=== PATIENT | female | born 1955 | race Caucasian/White ===

== ENCOUNTER → 2016-08-21 | Outpatient (CLI) | payer BC ==
--- NOTE | 2016-08-22 10:07 | MM ---
Reason for exam: screening (asymptomatic). Last mammogram was performed 1 year and 4 months ago. History: Patient is postmenopausal. Took estrogen for 2 years beginning at age 50. Physical Findings: A clinical breast exam by your physician is recommended on an annual basis and results should be correlated with mammographic findings. MG Screening Mammo w CAD Bilateral CC and MLO view(s) were taken. Prior study comparison: April 27, 2015, bilateral MG screening mammo w CAD. March 15, 2014, bilateral MG screening mammo w CAD. There are scattered fibroglandular densities. Finding: There are stable typically benign round calcifications. There is no discrete abnormality. No significant changes in finding since April 27, 2015 and March 15, 2014. ASSESSMENT: Benign, BI-RAD 2 RECOMMENDATION: Routine screening mammogram of both breasts in 1 year.
== END | disposition home or self-care (01) ==
LOC: RADMAMWWP 11:03
PROVIDERS: ATTEND Family Medicine
DX: Z12.31 Encounter for screening mammogram for malignant neoplasm of breast (principal)

== ENCOUNTER → 2017-02-21 | Outpatient (CLI) | payer BC ==
--- NOTE | 2017-02-21 09:21 | XR ---
EXAMINATION TYPE: XR Hip Bilateral Complete DATE OF EXAM: 02/21/2017 CLINICAL HISTORY: Increasing right groin pain for 2 years with left groin pain for 2 to 3 months TECHNIQUE: AP and frogleg views of the bilateral hips are obtained. COMPARISON: CT abdomen pelvis dated 09/22/2015 FINDINGS: There is no acute fracture/dislocation evident in either hip. There is bilateral mild femo ral acetabular arthropathy with acetabular sclerosis, small lateral femoral head marginal osteophyte on the right, small foveal osteophyte on the right, and bilateral medial joint space narrowing. No pr otuberance is seen at the femoral head neck junction to suggest underlying cam deformity. Femoral hea ds remain a rounded configuration. The overlying soft tissue appears unremarkable. IMPRESSION: 1. There is no acute fracture or dislocation in either hip. 2. 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
== END | disposition home or self-care (01) ==
LOC: RADXRYALE 08:58
PROVIDERS: ATTEND Nurse Practitioner Family
DX: M12.851 Other specific arthropathies, not elsewhere classified, right hip (principal); M12.852 Other specific arthropathies, not elsewhere classified, left hip
CPT/HCPCS: 73521

== ENCOUNTER → 2017-09-29 | Outpatient (CLI) | payer BC ==
--- NOTE | 2017-10-01 10:27 | MM ---
Reason for exam: screening (asymptomatic). Last mammogram was performed 1 year and 1 month ago. History: Patient is postmenopausal. Took estrogen for 2 years beginning at age 50. Physical Findings: A clinical breast exam by your physician is recommended on an annual basis and results should be correlated with mammographic findings. MG 3D Screening Mammo W/Cad Bilateral CC and MLO view(s) were taken. Prior study comparison: August 21, 2016, bilateral MG screening mammo w CAD. April 27, 2015, bilateral MG screening mammo w CAD. There are scattered fibroglandular densities. Finding: There are typically benign, fine, regional calcifications in the upper outer quadrant, middle position of the right breast. There is a chronic nodularity bilaterally. Focal asymmetry right upper outer quadrant. No significant changes in finding since August 21, 2016 and April 27, 2015. ASSESSMENT: Benign, BI-RAD 2 RECOMMENDATION: Routine screening mammogram of both breasts in 1 year.
== END | disposition home or self-care (01) ==
LOC: RADMAMWWP 16:23
PROVIDERS: ATTEND Family Medicine
DX: Z12.31 Encounter for screening mammogram for malignant neoplasm of breast (principal)
CPT/HCPCS: 77063; 77067

== ENCOUNTER → 2018-10-14 | Outpatient (CLI) | payer BC ==
--- NOTE | 2018-10-16 14:34 | MM ---
Reason for exam: screening (asymptomatic). Last mammogram was performed 1 year ago. History: Patient is postmenopausal. Took estrogen for 2 years beginning at age 50. Physical Findings: A clinical breast exam by your physician is recommended on an annual basis and results should be correlated with mammographic findings. MG 3D Screening Mammo W/Cad Bilateral CC and MLO view(s) were taken. Prior study comparison: September 29, 2017, bilateral MG 3d screening mammo w/cad. August 21, 2016, bilateral MG screening mammo w CAD. The breast tissue is heterogeneously dense. This may lower the sensitivity of mammography. Finding: There are typically benign regional calcifications in the upper outer quadrant, middle position of the right breast. No significant changes in finding since September 29, 2017 and August 21, 2016. ASSESSMENT: Benign, BI-RAD 2 RECOMMENDATION: Routine screening mammogram of both breasts in 1 year.
== END | disposition home or self-care (01) ==
LOC: RADMAMWWP 13:45
PROVIDERS: ATTEND Family Medicine
DX: Z12.31 Encounter for screening mammogram for malignant neoplasm of breast (principal)
CPT/HCPCS: 77063; 77067

== ENCOUNTER → 2019-02-10 | Outpatient (CLI) | payer BC ==
--- NOTE | 2019-02-10 13:44 | MR ---
EXAMINATION TYPE: MR shoulder RT wo con DATE OF EXAM: 02/10/2019 1:26 PM COMPARISON: NONE HISTORY: Bursitis of right shoulder TECHNIQUE: Multiplanar multispin echo imaging of the right shoulder was performed. FINDINGS: Rotator cuff : Marked thickening and heterogeneity of the supraspinatus tendon at the critical zone e xtending distally to the humeral insertion. Complete partial tear of the supraspinatus tendon noted w ithout retraction. Tear extends into the infraspinatus tendon. Subscapularis is intact. Bursa: No bursal effusion or thickening is seen. Musculature: There is no muscular tear, contusion, or atrophy. Acromioclavicular joint : There are moderate degenerative changes of the acromioclavicular joint. Th ere is no anterior or lateral acromial downsloping. Osseous structures : There are no fractures or regions of abnormal bone marrow signal intensity. Long biceps tendon : The biceps tendon is normally situated within the bicipital groove. No complete or partial biceps tendon tear is present. Glenohumeral Joint fluid : There is no glenohumeral joint effusion. Cartilage and Bone : No focal hyaline cartilage defects are noted. No Hill-Sachs, reverse Hill-Sachs, or bony Bankart lesions are seen. Labrum : There are no SLAP or soft tissue Bankart lesions. No paralabral cysts are seen. OTHER FINDINGS : Subchondral cyst within the humeral head greater tuberosity. IMPRESSION: 1. Marked thickening and heterogeneity of the supraspinatus tendon at the critical zone extending dis tally to the humeral insertion. Complete partial tear of the supraspinatus tendon noted without retra ction. Tear extends into the infraspinatus tendon.
== END ==
LOC: RADMRIMAIN 12:36
PROVIDERS: ATTEND Nurse Practitioner Family
DX: M75.111 Incomplete rotator cuff tear or rupture of right shoulder, not specified as traumatic (principal); R93.7 Abnormal findings on diagnostic imaging of other parts of musculoskeletal system

== ENCOUNTER → 2020-07-21 | Outpatient (CLI) | payer BC ==
--- NOTE | 2020-07-25 08:40 | MM ---
Reason for exam: screening (asymptomatic). Last mammogram was performed 1 year and 9 months ago. History: Patient is postmenopausal. Took estrogen for 2 years beginning at age 50. Physical Findings: A clinical breast exam by your physician is recommended on an annual basis and results should be correlated with mammographic findings. MG 3D Screening Mammo W/Cad Bilateral CC and MLO view(s) were taken. Prior study comparison: October 14, 2018, bilateral MG 3d screening mammo w/cad. September 29, 2017, bilateral MG 3d screening mammo w/cad. The breast tissue is heterogeneously dense. This may lower the sensitivity of mammography. There is chronic nodularity bilaterally. Global asymmetry with associated regional calcifications right upper outer quadrant is unchanged. No significant changes when compared with prior studies. ASSESSMENT: Benign, BI-RAD 2 RECOMMENDATION: Routine screening mammogram of both breasts in 1 year.
== END | disposition home or self-care (01) ==
LOC: RADMAMWWP 12:34
PROVIDERS: ATTEND Family Medicine
DX: Z12.31 Encounter for screening mammogram for malignant neoplasm of breast (principal)
CPT/HCPCS: 77063; 77067

== ENCOUNTER 2021-05-03 06:20 | Day surgery (SDC) | payer BC ==
[2021-05-01 15:17] VITALS: BMI 24.1
[2021-05-03] MEDS ORDERED: ONDANSETRON 4 MG/2 ML VIAL ONE (06:58)
[2021-05-03] MEDS ORDERED: LIDOCAINE 1% (10MG/ML) FOR IV START INTRADERMA ONE (07:10)
[2021-05-03] MEDS ORDERED: ONDANSETRON 4 MG/2 ML VIAL IVP ONE (07:10)
[2021-05-03 07:12] LABS: Glucose,Whole Blood 196 mg/dL (75-99)
[2021-05-03] MEDS ORDERED: LACTATED RINGERS 1,000 ML IV ONE (07:15)
[2021-05-03] MEDS ORDERED: PROPOFOL 10 MG/ML 20 ML VIAL IV ONE (07:18)
[2021-05-03] MEDS ORDERED: LIDOCAINE 1% INJ 10MG/ML (20 ML MDV) ONE (07:18)
[2021-05-03 07:21] VITALS: TEMP 97.8
--- NOTE | 2021-05-03 07:29 | P.PCN ---
Date of Procedure: 05/03/21 Procedure(s) Performed: BRIEF HISTORY: Patient is a 65-year-old, pleasant, white female scheduled for an upper endoscopy as a part of evaluation of metastatic adenocarcinoma of the liver with unknown primary. The studies to rule out upper GI malignancy. PROCEDURE PERFORMED: Esophagogastroduodenoscopy. PREOPERATIVE DIAGNOSIS: Recently diagnosed metastatic adenocarcinoma the liver rule out upper GI primary. IV sedation per anesthesia. PROCEDURE: After informed consent was obtained, the patient was brought into the endoscopy unit. IV sedation was administered by Anesthesia under continuous monitoring. Initially the Olympus GIF-140 video endoscope was inserted into the mouth. Esophagus intubated without any difficulty. It was gradually advanced into the stomach and duodenum and carefully examined. The bulb and the second part of the duodenum appeared normal. The scope at this time was withdrawn to the stomach, adequately insufflated with air, and upon careful examination, mucosa of the antrum, body, cardia and the fundus appeared normal. The scope was then withdrawn into the esophagus. The GE junction was located at 39 cm from the incisors. There were superficial erosions in the distal esophagus consistent with LA grade B reflux esophagitis. The rest of esophagus appeared normal and the patient tolerated the procedure well. IMPRESSION: 1. Mild distal reflux esophagitis. 2. No evidence of upper GI malignancy. RECOMMENDATIONS: The findings of this examination were discussed with the patient as well as a family. She was advised to follow with Dr. Shaikh as scheduled..
[2021-05-03 07:35] VITALS: RESP 16
[2021-05-03 07:57] VITALS: BP 135/80; PULSE 71
== END 2021-05-03 08:23 | disposition home or self-care (01) ==
LOC: ORWHC2ENDO 06:20
PROVIDERS: ATTEND Internal Medicine Gastroenterology
DX: K21.9 Gastro-esophageal reflux disease without esophagitis (principal); K21.00 Gastro-esophageal reflux disease with esophagitis, without bleeding; I10 Essential (primary) hypertension; J45.909 Unspecified asthma, uncomplicated; Z98.890 Other specified postprocedural states; F41.9 Anxiety disorder, unspecified; Z79.899 Other long term (current) drug therapy
CPT/HCPCS: 43235; J2405; J2001; J2704

== ENCOUNTER 2021-05-10 11:15 | Day surgery (SDC) | payer BC ==
[2021-05-07 09:00] VITALS: BMI 24.1
[~2021-05-10 11:15] MED LIST: DEXAMETHASONE SOD PHOSPHATE 4 MG/ML 1 ML VIAL IV ONE; HYDROmorphone 0.5 MG/0.5 ML SYRINGE IVP PRN; LACTATED RINGERS 1,000 ML IV SCH; ONDANSETRON 4 MG/2 ML VIAL IVP ONE; Pre Op ABX Message 1 EACH MISC MISCELLANE ONE
[2021-05-10 11:51] VITALS: TEMP 98.5
[2021-05-10 12:03] LABS: Glucose,Whole Blood 184 mg/dL (75-99)
[2021-05-10] MEDS ORDERED: fentaNYL (PF) 50 MCG/ML 2 ML AMP ONE (12:28)
[2021-05-10] MEDS ORDERED: PROPOFOL 10 MG/ML 20 ML VIAL IV ONE (12:28)
[2021-05-10] MEDS ORDERED: MIDAZOLAM 2 MG/2 ML VIAL ONE (12:28)
[2021-05-10] MEDS ORDERED: KETAMINE 10 MG/ML 20 ML VIAL ONE (12:28)
[2021-05-10] MEDS ORDERED: LIDOCAINE 1% INJ 10MG/ML (20 ML MDV) SQ ONE (12:40)
[2021-05-10] MEDS ORDERED: LIDOCAINE 1%-EPI 1:100,000 20 ML VIAL SQ ONE (12:40)
[2021-05-10] MEDS ORDERED: ceFAZolin 1,000 MG VIAL IVPB ONE (12:40)
--- NOTE | 2021-05-10 13:22 | P.OP ---
Date of Procedure: 05/10/21 Preoperative Diagnosis: adenocarcinoma of the liver Postoperative Diagnosis: same Procedure(s) Performed: Right subclavian mediport placement Anesthesia: MAC Surgeon: Bebeto Renee Estimated Blood Loss (ml): 10 Condition: stable Disposition: PACU Description of Procedure: Patient is brought to the operative suite remained in supine position underwent sedation per department of anesthesia timeout was performed correct patient correct procedure correct site was verified local anesthetic was used to an esthetize the skin subcutaneous tissues directly over the right anterior chest the cannulating needle was used to cannulate the subclavian vein dark nonpulsatile red blood was noted the wire was passed into the SVC under direct visualization with fluoroscopy. The cannulating needle was removed leaving the wire in place. A 15 blade scalpel was used to make an incision just inferior to this on the anterior chest carried down and a pocket was created hemostasis was noted the catheter was tunneled between the pocket and the wire and the dilator and sheath were placed directly over the wire in a coaxial motion while watching under fluoroscopy. The wire and the dilator were removed leaving the sheath in place in the catheter was placed through the sheath and confirmed to be at the SVC atrial junction on fluoroscopy. The sheath was split and removed leaving just the catheter. The catheter was cut to size, the Mediport was placed Mediport was sutured in place in the anterior chest fascia. This was done with 2-0 Prolene's. The port was flushed with ease and hep-locked. Final image was taken and confirmed port in proper place. The wound was then closed with 3-0 subdermal Vicryl followed by 4-0 running subcuticular Monocryl stitch. The stab incision was closed with a 4-0 Monocryl. Sterile dressing was applied patient tolerated the procedure well no apparent complications Plan - Discharge Summary Discharge Rx Participant: Yes New Discharge Prescriptions: No Action Montelukast [Singulair] 10 mg PO HS ALPRAZolam [Xanax] 0.25 mg PO BID PRN PRN Reason: Anxiety Albuterol Sulfate [Proventil Hfa] 1 - 2 puff INHALATION RT-BID PRN PRN Reason: wheezing Fluticasone/Salmeterol [Advair 250-50 Diskus] 1 puff INHALATION HS Scopolamine [Scopolamine 1 MG/72 HR patch] 1 patch TRANSDERM Q72H Hydrochlorothiazide [hydroCHLOROthiazide] 12.5 mg PO DAILY Metoclopramide HCl [Reglan] 5 mg PO QID Omeprazole [PriLOSEC] 20 mg PO AC-BID PRN PRN Reason: Heartburn amLODIPine [Norvasc] 10 mg PO DAILY Discharge Medication List ALPRAZolam [Xanax] 0.25 mg PO BID PRN 07/11/14 [History] Albuterol Sulfate [Proventil Hfa] 1 - 2 puff INHALATION RT-BID PRN 07/11/14 [History] Montelukast [Singulair] 10 mg PO HS 07/11/14 [History] Fluticasone/Salmeterol [Advair 250-50 Diskus] 1 puff INHALATION HS 09/22/15 [History] Hydrochlorothiazide [hydroCHLOROthiazide] 12.5 mg PO DAILY 05/01/21 [History] Metoclopramide HCl [Reglan] 5 mg PO QID 05/01/21 [History] Omeprazole [PriLOSEC] 20 mg PO AC-BID PRN 05/01/21 [History] Scopolamine [Scopolamine 1 MG/72 HR patch] 1 patch TRANSDERM Q72H 05/01/21 [History] amLODIPine [Norvasc] 10 mg PO DAILY 05/01/21 [History]
--- NOTE | 2021-05-10 13:24 | FL ---
EXAMINATION TYPE: FL guided central line placemt HISTORY: Fluoroscopy time Impression: 1. Fluoroscopy support provided to the referring physician.
--- NOTE | 2021-05-10 13:45 | XR ---
EXAMINATION TYPE: XR chest 1V portable DATE OF EXAM: 05/10/2021 COMPARISON: 09/21/2015 HISTORY: Mediport placement TECHNIQUE: Single frontal view of the chest is obtained. FINDINGS: There is no focal air space opacity, pleural effusion, or pneumothorax seen. The cardiac silhouette size is within normal limits. The osseous structures are intact. There is a right-sided Mediport catheter the tip overlying the SVC. No sizable pneumothorax. Arthropathy of the shoulders. A therosclerotic change aorta. Hyperinflation suggests COPD. No overt failure. IMPRESSION: 1. Mediport overlying the SVC with no sizable pneumothorax.
[2021-05-10 13:47] VITALS: BP 147/76; PULSE 65; RESP 16
== END 2021-05-10 14:22 | disposition home or self-care (01) ==
LOC: OR 11:15
PROVIDERS: ATTEND Student in an Organized Health Care Education/Training Program
DX: C22.7 Other specified carcinomas of liver (principal); E11.9 Type 2 diabetes mellitus without complications; J45.909 Unspecified asthma, uncomplicated; I10 Essential (primary) hypertension; E78.5 Hyperlipidemia, unspecified; Z98.890 Other specified postprocedural states; Z80.0 Family history of malignant neoplasm of digestive organs; Z79.899 Other long term (current) drug therapy; Z79.51 Long term (current) use of inhaled steroids
CPT/HCPCS: 77001; 71045; 36561; C1788; J2250; J1100; J2405; J0690; J2001; J3010; J1642; J2704

== ENCOUNTER → 2021-05-25 | Outpatient (CLI) | payer BC ==
--- NOTE | 2021-05-28 08:30 | PE ---
EXAMINATION TYPE: PET CT fusion skull to thigh DATE OF EXAM: 05/25/2021 COMPARISON: CT abdomen and pelvis December 19, 2017 HISTORY: Liver cancer recent biopsy April 2021. TECHNIQUE: Following the intravenous administration of 9.37 mCi of F-18 FDG, whole body images are p erformed from the skull base to the midthigh. Images are reviewed on the computer in the coronal, ax ial, and sagittal planes. Reconstructed rotating images are created on independent workstation and r eviewed on the computer. A localization and attenuation correction CT is performed in conjunction w ith the PET scan. Blood glucose level equals 157. SCAN: Initial Scan FINDINGS: SKULL BASE AND NECK: No areas of abnormal hypermetabolic uptake. CHEST, MEDIASTINUM, AND HILAR REGION: No areas of abnormal hypermetabolic uptake. ABDOMEN AND PELVIS: Vague hypermetabolic lesion anterior-inferior liver measures roughly 4.9 cm long axis axial image 139 series 3, max SUV is 4.91. There is second mildly hypermetabolic lesion in the p eriphery of the right hepatic lobe just below this suspected axial image 143 measuring 2.7 cm long ax is, max SUV is 4.35. A third 2.1 cm lesion just below the first lesion axial image 146 is suspected. Subtle hypermetabolic uptake axial image 148 corresponds to deep deep pancreatic body suspect roughly 1.5 cm lesion, max SUV is 3.83. No ductal dilatation or obstruction noted. Normal excretion is seen. Mild nonspecific bowel uptake is noted. OSSEOUS STRUCTURES: No areas of abnormal hypermetabolic uptake. OTHER CT: Mild calcified plaque right carotid bulb. There is right subclavian Mediport catheter termi nating in SVC. Coronary artery calcification is present. Slightly retroflexed uterus. Occasional scattered pelvic phlebolith. Mild to moderate disc space narr owing with vacuum disc phenomenon L5-S1 level. Facet arthropathy lower lumbar levels. IMPRESSION: Findings consistent with subtle primary pancreatic neoplasm and hepatic metastatic diseas e as detailed above.
== END | disposition home or self-care (01) ==
LOC: RADPETMAIN 12:24
PROVIDERS: ATTEND Internal Medicine Hematology & Oncology
DX: C78.7 Secondary malignant neoplasm of liver and intrahepatic bile duct (principal); C25.9 Malignant neoplasm of pancreas, unspecified
CPT/HCPCS: 78815; A9552

== ENCOUNTER → 2021-10-17 | Outpatient (CLI) | payer BC ==
[2021-10-17 14:28] LABS: African American GFR (CKD) >90 (>60 ml/min/1.73 sqM); Blood Urea Nitrogen 8 mg/dL (7-17); Non-African American GFR(CKD) >90 (>60 ml/min/1.73 sqM)
--- NOTE | 2021-10-19 13:18 | CT ---
EXAMINATION TYPE: CT chest, abdomen and pelvis w con DATE OF EXAM: 10/17/2021 COMPARISON: Or 622 HISTORY: malignant neoplasm of pancreas CT DLP: 503.5 mGycm Automated exposure control for dose reduction was used. CONTRAST: CT scan of the chest,, abdomen and pelvis is performed with Oral Contrast and with IV Contrast, patie nt injected with 70ml mL of Isovue 300. FINDINGS: CT chest: There is no acute cardiopulmonary disease. The lungs are clear. There is no pleural effusion or pneum othorax. There is no suspicious lung mass or nodule. There is no mediastinal, hilar or axillary adenopathy. Great vessels chest are normal. There is a Mediport catheter on the right with the tip in the SVC/RA junction. No focal intraosseous abnormalities are seen. CT abdomen and pelvis: There has been interval placement of a common bile duct stent. There is scattered air within the intr ahepatic biliary tree but the marked bile duct dilatation and gallbladder distention seen in the prio r study has resolved in the interval. The gallbladder is currently contracted. There is diffuse fatty replacement of the liver. There is an 18 mm enhancing metastatic lesion in the right upper liver which was seen previously and is stable. The pancreas is not well defined but there are multiple cystic lesions within it which appear to have increased in the interval. The spleen is unremarkable. Kidneys excrete contrast probably symmetrically and there is no solid renal mass or hydronephrosis. T he caliber of the abdominal aorta is normal. There is no retroperitoneal adenopathy or hemorrhage. The bowel loops are normal in caliber is no evidence of obstruction. There is no free intraperitoneal air or fluid. There is no pelvic mass or adenopathy. The osseous structures are intact without focal intraosseous abnormality. IMPRESSION: 1. Unremarkable chest CT. No evidence of metastatic disease within the thorax. 2. Interval placement of an biliary stent which has resulted in resolution of the previous marked albert iary ductal dilatation and gallbladder distention. 3. Increasing multiple cystic/necrotic masses within the pancreas. 4. No change in the metastatic liver lesion 5. Diffuse fatty infiltration liver. 6. No focal intraosseous abnormalities.
== END | disposition home or self-care (01) ==
LOC: RADCTMAIN 13:24
PROVIDERS: ATTEND Internal Medicine Hematology & Oncology
DX: C25.0 Malignant neoplasm of head of pancreas (principal); K76.0 Fatty (change of) liver, not elsewhere classified
CPT/HCPCS: 82565; 84520; 71260; 74177; J1642; Q9967

== ENCOUNTER → 2022-04-01 | Outpatient (CLI) | payer BC ==
[2022-04-01 14:19] LABS: African American GFR (CKD) >90 (>60 ml/min/1.73 sqM); Blood Urea Nitrogen 7 mg/dL (7-17); Non-African American GFR(CKD) >90 (>60 ml/min/1.73 sqM)
--- NOTE | 2022-04-01 16:05 | CT ---
EXAMINATION TYPE: CT ChestAbdPelvis w con CT DLP: 538.0 mGycm, Automated exposure control for dose reduction was used. DATE OF EXAM: 04/01/2022 3:37 PM COMPARISON: CT most recent chest abdomen pelvis 01/04/2022 CLINICAL INDICATION:Female, 66 years old with history of C25.0 MALIGNANT NEOPLASM OF HEAD OF PANCREAS 1, hx of pancreatic ca. obs for mets. Technique: Multiple axial images of the chest, abdomen, and pelvis were obtained. Two-dimensional cor onal and sagittal reconstructions were obtained. Contrast used:100 mL of Isovue 300 with IV Contrast, Oral contrast used: with Oral Contrast Findings: CHEST: LUNGS/ PLEURA:. No focal consolidation, pneumothorax or pleural effusion. No evidence for pulmonary n odule AIRWAY: Patent and unremarkable. HEART: Size within normal limits. MEDIASTINUM: No gross evidence of adenopathy. VASCULATURE: No aortic aneurysm. Right chest wall Brxtxf-y-[id number] with distal tip terminating in the s uperior vena cava. MUSCULOSKELETAL: No acute osseous abnormalities. SOFT TISSUES/LYMPH NODES: Left thyroid nodule LOWER NECK: No significant findings. ABDOMEN: ABDOMEN LIVER: Diffusely hypoattenuating parenchyma similar to prior. Hypervascular lesion measuring up to 2. 8 cm is again seen in the right hepatic lobe segment 8. Area in segment 4A and other lesions are less well delineated on this examination GALLBLADDER AND BILE DUCTS: Redemonstration of pneumobilia process significant change from prior. The redemonstration of biliary stent is in place with distal tip terminating in the duodenum and the pro ximal tip terminating in the common bile duct. Stent appears patent. PANCREAS: Persistent pancreatic duct dilation with cystic areas most pronounced in the tail. Prior ar ea within the pancreatic head/neck cystic is not definitively visualized on today's exam the area wit hin the pancreatic body measures similarly at 18 mm The pancreatic head mass is difficult to properly measure however is felt to measure up to 4.6 x 3.1 cm could includes fat stranding changes around the pancreatic head. SPLEEN: Unremarkable. ADRENAL GLANDS: Unremarkable. KIDNEYS AND URETERS: No evidence of hydronephrosis or renal calculus. The ureters are unremarkable. PELVIS BLADDER: Unremarkable REPRODUCTIVE: Unremarkable. ABDOMEN & PELVIS STOMACH AND BOWEL: No evidence of bowel obstruction. There is some wall thickening of the descending colon measuring up to 7 mm. PERITONEUM: No evidence of pneumoperitoneum. There is small amount of free fluid throughout the abdom en and pelvis. VASCULATURE: No evidence of aortic aneurysm. Moderate to severe atherosclerosis of the arterial vascu lature. MUSCULOSKELETAL: Sclerotic focus within L3 measuring 8 mm is stable from prior additional sclerotic f oci involving the pelvis left iliac bone is similar to prior as well.. No acute osseous abnormalities . Mild disc degeneration changes are present throughout the thoracolumbar spine. No suspicious lesion . Left hip bone island. LYMPH NODES: No gross evidence for lymphadenopathy. SOFT TISSUE/ABDOMINAL WALL: Unremarkable IMPRESSION: 1. Overall findings are not significantly changed with hepatic metastatic disease. Pancreatic head m ass with pancreatic cystic lesions nearby are suboptimally evaluated due to hazy fat stranding/inflam mation around the pancreas which may partially due to new free fluid seen within the abdomen versus i nfiltrative pancreatic cancer. 2. Stable L3 vertebral body and left iliac bone sclerotic foci. 3. Diffuse hepatic steatosis. 4. Biliary stent with pneumobilia 5. There remains no evidence of metastatic disease within the thorax. 6. Ascending colon circumferential wall thickening up to 7 mm correlate for colitis.
== END | disposition home or self-care (01) ==
LOC: RADCTMAIN 13:37
PROVIDERS: ATTEND Internal Medicine Hematology & Oncology
DX: C78.7 Secondary malignant neoplasm of liver and intrahepatic bile duct (principal); C25.0 Malignant neoplasm of head of pancreas; K76.0 Fatty (change of) liver, not elsewhere classified; K86.2 Cyst of pancreas
CPT/HCPCS: 82565; 84520; 71260; 74177; 36415; Q9967

== ENCOUNTER 2022-04-19 17:51 | Emergency (ER) | payer BC ==
[2022-04-19 18:06] VITALS: BP 156/85; PULSE 81; RESP 18; TEMP 98.4
--- NOTE | 2022-04-19 20:22 | CT ---
EXAMINATION TYPE: CT brain wo con CT DLP: 1190.4 mGycm, Automated exposure control for dose reduction was used. DATE OF EXAM: 04/19/2022 8:11 PM COMPARISON: 04/01/2022 CLINICAL INDICATION:Female, 66 years old with history of metastatic pancreatic cancer, sudden ear ble eding, Sudden right ear bleeding. Metastatic pancreatic CA TECHNIQUE: Brain: Axial CT images of the brain were obtained with coronal and sagittal reformats created and rev iewed. Contrast used: None. Oral contrast used: None. FINDINGS: Brain: Extra-axial spaces: No abnormal extra-axial fluid collections. Falx lipoma noted anteriorly. Ventricular system: Within normal limits Cerebral parenchyma: No acute intraparenchymal hemorrhage or mass effect. The clancy-white junction is well differentiated. Cerebellum: Unremarkable. Mass effect: No evidence of midline shift. Intracranial vasculature: Atherosclerotic calcifications of the intracranial vessels. Soft tissues: Normal. Calvarium/osseous structures: No depressed skull fracture. Paranasal sinuses and mastoid air cells: Moderate scattered paranasal sinus disease. The right walking dragline operator al auditory canal is opacified. Right middle ears nonopacified the mastoid air cells are not opacifie d. Visualized orbits: Orbital contents are intact. IMPRESSION: 1. No acute intracranial process. 2. No definitive CT evidence for metastatic disease to the brain. 3. Right external auditory canal opacification consistent with physical exam.
[2022-04-19] MEDS ORDERED: OFLOXACIN 0.3% OPHTH DROPS 5 ML BOTTLE RIGHT EAR STA (20:36)
--- NOTE | 2022-04-19 20:40 | ED ---
ENT HPI - General Chief complaint: ENT Stated complaint: Blood in Ear Time Seen by Provider: 04/19/22 19:26 Source: patient, family, RN notes reviewed Mode of arrival: ambulatory Limitations: no limitations - History of Present Illness Initial comments: This is a 66-year-old female who presents to the emergency department for concerns of blood draining from her right ear. About 2 days ago, she started to develop upper respiratory symptoms including a cough and congestion. Today she took an at home Covid test, and was found to be positive. She contacted her primary care provider who sent in a prescription for Paxlovid. Around 4 PM today, she felt like her right ear was plugged. She tried rinsing this out with a bulb syringe, and an hour afterwards, she noticed that the ear was bleeding and she had associated pain. She states that this was initially bleeding very heavy and has since started to calm down. Denies being on any blood thinners. Denies sticking anything else in her ear or scratching it to her knowledge. She is currently being treated for stage IV pancreatic cancer. This was diagnosed approximately one year ago. She had an MRI of the brain which did not reveal metastasis. Metastasis is localized to the abdomen at this point. She is currently being treated with chemotherapy but not radiation. Denies any fevers, chills, sore throat, dyspnea, chest pain, palpitations, abdominal pain, nausea, vomiting, diarrhea, back pain, or headaches. MD complaint: ear pain Location: R ear - Related Data Home Medications Medication Instructions Recorded Confirmed ALPRAZolam [Xanax] 0.25 mg PO QID PRN 07/11/14 04/19/22 Montelukast [Singulair] 10 mg PO 07/11/14 04/19/22 Fluticasone Propion/Salmeterol 1 puff INHALATION RT-DAILY 09/22/15 04/19/22 [Advair 250-50 Diskus] amLODIPine [Norvasc] 10 mg PO DAILY PRN 05/01/21 04/19/22 Lidocaine-Prilocaine Cream [Emla 1 applic TOPICAL DIRECTED PRN 06/17/21 04/19/22 Cream 2.5%/2.5%] Bimatoprost [Bimatoprost 0.03% 1 drop BOTH EYES HS 04/19/22 04/19/22 Ophth Soln] Gabapentin 300 mg PO TID 04/19/22 04/19/22 Insulin Aspart (Niacinamide) 2 - 6 units SQ AC-TID PRN 04/19/22 04/19/22 [Fiasp 100 Unit/ml Flextouch Pen] Insulin Degludec [Tresiba 12 units SQ BID PRN 04/19/22 04/19/22 Flextouch U-100 Pen] Losartan [Cozaar] 50 mg PO DAILY PRN 04/19/22 04/19/22 Nirmatrelvir/Ritonavir [Paxlovid 1 dose PO BID 04/19/22 04/19/22 150-100 mg Pack (Eua)] OLANZapine 5 mg PO HS 04/19/22 04/19/22 Ondansetron [Zofran] 4 mg PO Q4H PRN 04/19/22 04/19/22 Potassium Chloride ER [K-Dur 20] 20 meq PO DAILY 04/19/22 04/19/22 Tolterodine Tartrate 1 mg PO BID 04/19/22 04/19/22 Previous Rx's Medication Instructions Recorded Sodium Bicarbonate Tab 650 mg PO TID #30 tab 06/19/21 Allergies Allergy/AdvReac Type Severity Reaction Status Date / Time No Known Allergies Allergy Verified 04/19/22 20:46 Review of Systems ROS Statement: Those systems with pertinent positive or pertinent negative responses have been documented in the HPI. ROS Other: All systems not noted in ROS Statement are negative. Past Medical History Past Medical History: Asthma, Cancer, Hyperlipidemia, Hypertension Additional Past Medical History / Comment(s): Diverticulosis, pancreatic cancer mets to liver and ducts History of Any Multi-Drug Resistant Organisms: None Reported Past Surgical History: Tonsillectomy Additional Past Surgical History / Comment(s): bunion surgery, colonoscopy Past Psychological History: No Psychological Hx Reported Smoking Status: Current every day smoker, Never smoker Past Alcohol Use History: None Reported Past Drug Use History: Marijuana - Past Family History Father Family Medical History: Congestive Heart Failure (CHF) Mother Family Medical History: Cancer General Exam Limitations: no limitations General appearance: alert, in no apparent distress Head exam: Present: atraumatic, normocephalic, normal inspection ENT exam: Present: other (Dried blood around the right auricle with blood clots in the ear canal. Tympanic membrane appears intact. Visualization is limited by clots within the right ear. She has discomfort during the examination with the otoscope.) Respiratory exam: Present: normal lung sounds bilaterally. Absent: respiratory distress, wheezes, rales, rhonchi, stridor Cardiovascular Exam: Present: regular rate, normal rhythm, normal heart sounds. Absent: systolic murmur, diastolic murmur, rubs, gallop, clicks Neurological exam: Present: alert, oriented X3, CN II-XII intact Psychiatric exam: Present: normal affect, normal mood Skin exam: Present: warm, dry, intact, normal color. Absent: rash Course Vital Signs 04/19/22 18:03 Temperature 98.4 F Pulse Rate 81 Respiratory 18 Rate Blood Pressure 156/85 O2 Sat by Pulse 99 Oximetry Medical Decision Making - Medical Decision Making This is a 66-year-old female who presents to the emergency department for right ear pain and bleeding. Due to the pancreatic cancer diagnosis and sudden onset of the bleeding, computed tomography scan of the brain was obtained to evaluate for any signs of metastasis. My interpretation of the brain CT does not reveal any signs of metastasis, intracranial hemorrhage, or mass effect. The patient was also evaluated by ED attending, Dr. Proctor. He advised that we will treat this as a perforated eardrum with antibiotics. Her tetanus status is up-to-date. She was given a bottle of ofloxacin eardrops in the emergency department. Dosing instructions reviewed, in that she will use 10 drops to the right ear daily for 7 days. Recommended she alternate with ibuprofen and Tylenol for discomfort. Advised the patient that she should avoid rinsing out the ear, putting anything in the ear, and be careful to avoid getting excess water in the ear when taking showers. She is also instructed to contact Dr. Duckworth's office on Friday for a follow-up appointment. Return precautions reviewed in depth, the patient is instructed to return to the emergency department with any new, worsening, or concerning symptoms. Patient verbalized understanding. This case was discussed in detail with the attending ED physician. Presentation, findings, and treatment plan discussed in detail as well. - Radiology Data Radiology results: report reviewed, image reviewed Disposition Clinical Impression: Blood in right ear canal Disposition: HOME SELF-CARE Instructions (If sedation given, give patient instructions): Ruptured Eardrum (ED) Additional Instructions: Return to the emergency department with any new, worsening, or concerning symptoms. Apply the eardrops as 10 drops to the right ear once daily for 7 days. You can alternate with ibuprofen and Tylenol as needed for discomfort. Contact Dr. Duckworth's office on Friday for a follow-up appointment and advise them that you likely have a perforated eardrum. Avoid rinsing out the ear, sticking anything in the ear, and allowing excess water from the shower to go into the ear. Follow up with your primary care provider in 1-2 days. Is patient prescribed a controlled substance at d/c from ED?: No Referrals: Sarath Barney MD [Primary Care Provider] - 1-2 days Elmer Jon DO [Doctor of Osteopathic Medicine] - 1-2 days
== END 2022-04-19 21:47 | disposition home or self-care (01) ==
LOC: EC 17:51
DX: H92.21 Otorrhagia, right ear (principal); J45.909 Unspecified asthma, uncomplicated; I10 Essential (primary) hypertension; F12.90 Cannabis use, unspecified, uncomplicated; F17.200 Nicotine dependence, unspecified, uncomplicated; Z79.899 Other long term (current) drug therapy
CPT/HCPCS: 70450; 99283

== ENCOUNTER 2022-05-24 17:05 | Inpatient (IN) | payer MEDICAID ==
[2022-05-24] MEDS ORDERED: HYDROcodone/APAP 5-325MG 1 EACH TAB PO PRN (17:26)
[2022-05-24] MEDS ORDERED: DEXTROSE 50% SYRINGE 50 ML IVP PRN ×2 (17:28)
[2022-05-24] MEDS ORDERED: MAGNESIUM HYDROXIDE 2,400 MG/10 ML CUP PO PRN (17:31)
[2022-05-24] MEDS: METOCLOPRAMIDE 5 MG/ML 2 ML VIAL IVP PRN (18:04)
[2022-05-24] MEDS: MORPHINE SULFATE 4 MG/ML SYRINGE IVP PRN ×2 (18:05→22:13)
--- NOTE | 2022-05-24 19:54 | US ---
EXAMINATION TYPE: US abdomen limited DATE OF EXAM: 05/24/2022 COMPARISON: NONE CLINICAL HISTORY: Pancreatic CA; Ascites. Ascites check Moderate amount of ascites visualized. Most of the fluid appeared to be in LLQ. IMPRESSION: There is ascites demonstrated in all 4 quadrants of the abdomen.
[2022-05-24 20:51] LABS: Glucose,Whole Blood 208 mg/dL (70-110)
[2022-05-24] MEDS: MONTELUKAST 10 MG TAB PO SCH (22:08)
[2022-05-24] MEDS: INSULIN ASPART (NovoLOG) 100 UNIT/ML VIAL SQ SCH (22:08)
[2022-05-24] MEDS: DOCUSATE 100 MG CAP PO SCH (22:08)
[2022-05-24] MEDS: dexAMETHasone 4 MG TAB PO SCH (22:08)
[2022-05-24] MEDS: GABAPENTIN 300 MG CAP PO SCH (22:09)
[2022-05-24] MEDS: ALPRAZolam 0.25 MG TAB PO PRN (22:13)
[2022-05-25] MEDS: MORPHINE SULFATE 4 MG/ML SYRINGE IVP PRN ×6 (02:30→23:16)
[2022-05-25 07:14] LABS: Glucose,Whole Blood 165 mg/dL (70-110)
[2022-05-25] MEDS: ONDANSETRON 4 MG/2 ML VIAL IVP PRN ×2 (08:27→18:07)
[2022-05-25] MEDS: INSULIN ASPART (NovoLOG) 100 UNIT/ML VIAL SQ SCH ×4 (08:29→21:43)
[2022-05-25] MEDS: GABAPENTIN 300 MG CAP PO SCH ×3 (08:29→21:43)
[2022-05-25] MEDS: dexAMETHasone 4 MG TAB PO SCH ×2 (08:29→21:43)
[2022-05-25] MEDS: DOCUSATE 100 MG CAP PO SCH ×2 (08:29→21:43)
[2022-05-25] MEDS: ALPRAZolam 0.25 MG TAB PO PRN (08:29)
--- NOTE | 2022-05-25 10:58 | P.HPIM ---
History of Present Illness Patient with pancreatic cancer is admitted for symptom management. Patient was having nausea uncontrolled abdominal pain and abdominal ascites. Patient is still nauseous did move her bowel for last few days. REVIEW OF SYSTEMS: Negative except for those mentioned above PHYSICAL EXAMINATION: GENERAL: The patient is alert and oriented x3, not in any acute distress. Well developed, well nourished. HEENT: Pupils are round and equally reacting to light. EOMI. No scleral icterus. No conjunctival pallor. Normocephalic, atraumatic. No pharyngeal erythema. No thyromegaly. CARDIOVASCULAR: S1 and S2 present. No murmurs, rubs, or gallops. PULMONARY: Chest is clear to auscultation, no wheezing or crackles. ABDOMEN: Distended tympanic MUSCULOSKELETAL: No joint swelling or deformity. EXTREMITIES: No cyanosis, clubbing, or pedal edema. NEUROLOGICAL: Gross neurological examination did not reveal any focal deficits. SKIN: No rashes. Assessment and plan -Abdominal pain secondary to pancreatic cancer abdominal distention: There is ascites also noted paracentesis will be ordered patient is also constipated will order lactulose. -Pancreatic cancer patient is presently hospice and admitted for inpatient hospice and acute symptom management Other notable medical problems are asthma, hyperlipidemia, hypertension DVT prophylaxis: Irrelevant at this time Past Medical History Past Medical History: Asthma, Cancer, Hyperlipidemia, Hypertension Additional Past Medical History / Comment(s): Diverticulosis, pancreatic cancer mets to liver and ducts History of Any Multi-Drug Resistant Organisms: None Reported Past Surgical History: Tonsillectomy Additional Past Surgical History / Comment(s): bunion surgery, colonoscopy Past Psychological History: No Psychological Hx Reported Smoking Status: Former smoker Past Alcohol Use History: None Reported Past Drug Use History: Marijuana Additional Drug Use History / Comment(s): pt is a daily medical marijuana user for nausea and pain - Past Family History Father Family Medical History: Congestive Heart Failure (CHF) Mother Family Medical History: Cancer Medications and Allergies Home Medications Medication Instructions Recorded Confirmed Type ALPRAZolam [Xanax] 0.25 mg PO QID PRN 07/11/14 05/24/22 History Montelukast [Singulair] 10 mg PO HS 07/11/14 05/24/22 History Fluticasone Propion/Salmeterol 1 puff INHALATION RT-DAILY 09/22/15 05/24/22 History [Advair 250-50 Diskus] amLODIPine [Norvasc] 10 mg PO DAILY PRN 05/01/21 05/24/22 History Lidocaine-Prilocaine Cream [Emla 1 applic TOPICAL DIRECTED PRN 06/17/21 05/24/22 History Cream 2.5%/2.5%] Sodium Bicarbonate Tab 650 mg PO TID #30 tab 06/19/21 05/24/22 Rx Bimatoprost [Bimatoprost 0.03% 1 drop BOTH EYES HS 04/19/22 05/24/22 History Ophth Soln] Gabapentin 300 mg PO TID 04/19/22 05/24/22 History Insulin Aspart (Niacinamide) 2 - 6 units SQ AC-TID PRN 04/19/22 05/24/22 History [Fiasp 100 Unit/ml Flextouch Pen] Insulin Degludec [Tresiba 12 units SQ BID PRN 04/19/22 05/24/22 History Flextouch U-100 Pen] Losartan [Cozaar] 50 mg PO DAILY PRN 04/19/22 05/24/22 History Nirmatrelvir/Ritonavir [Paxlovid 1 dose PO BID 04/19/22 05/24/22 History 150-100 mg Pack (Eua)] OLANZapine 5 mg PO HS 04/19/22 05/24/22 History Ondansetron [Zofran] 4 mg PO Q4H PRN 04/19/22 05/24/22 History Potassium Chloride ER [K-Dur 20] 20 meq PO DAILY 04/19/22 05/24/22 History Tolterodine Tartrate 1 mg PO BID 04/19/22 05/24/22 History Allergies Allergy/AdvReac Type Severity Reaction Status Date / Time No Known Allergies Allergy Verified 05/24/22 18:53 Physical Exam Vitals: Vital Signs Temp Pulse Resp BP Pulse Ox 05/25/22 07:14 97.9 F 56 L 16 161/82 97 05/25/22 01:31 98.6 F 65 14 150/72 96 05/24/22 20:00 98.3 F 68 16 127/73 97 05/24/22 17:30 98.1 F 71 18 139/86 99 Intake and Output 05/24/22 05/25/22 05/25/22 22:59 06:59 14:59 Other: # Voids 2 Weight 48.081 kg Results Labs: Abnormal Lab Results - Last 24 Hours (Table) 05/24/22 05/25/22 Range/Units 20:50 07:13 POC Glucose (mg/dL) 208 H 165 H (70-110) mg/dL Thrombosis Risk Factor Assmnt - Choose All That Apply Each Risk Factor Represents 2 Points: Age 61-74 years, Malignancy Thrombosis Risk Factor Assessment Total Risk Factor Score: 4 Thrombosis Risk Factor Assessment Level: Moderate Risk
[2022-05-25 11:25] LABS: Glucose,Whole Blood 180 mg/dL (70-110)
[2022-05-25] MEDS: LACTULOSE 20 GM/30 ML CUP PO PRN ×2 (12:37→21:43)
[2022-05-25 17:27] LABS: Glucose,Whole Blood 209 mg/dL (70-110)
[2022-05-25 20:11] LABS: Glucose,Whole Blood 183 mg/dL (70-110)
[2022-05-25] MEDS: MONTELUKAST 10 MG TAB PO SCH (21:43)
[2022-05-25] MEDS ORDERED: amLODIPine 10 MG TAB PO PRN (22:46)
[2022-05-26] MEDS: MORPHINE SULFATE 4 MG/ML SYRINGE IVP PRN ×4 (04:31→20:00)
[2022-05-26 07:15] LABS: Glucose,Whole Blood 195 mg/dL (70-110)
[2022-05-26] MEDS: DOCUSATE 100 MG CAP PO SCH ×2 (08:22→22:36)
[2022-05-26] MEDS: GABAPENTIN 300 MG CAP PO SCH ×3 (08:22→22:36)
[2022-05-26] MEDS: INSULIN ASPART (NovoLOG) 100 UNIT/ML VIAL SQ SCH ×4 (08:22→22:35)
[2022-05-26] MEDS: dexAMETHasone 4 MG TAB PO SCH ×2 (08:22→22:36)
[2022-05-26] MEDS: LACTULOSE 20 GM/30 ML CUP PO PRN (10:44)
[2022-05-26 11:14] LABS: Glucose,Whole Blood 228 mg/dL (70-110)
--- NOTE | 2022-05-26 14:24 | P.PN ---
Subjective Patient with pancreatic cancer is admitted for symptom management. Patient was having nausea uncontrolled abdominal pain and abdominal ascites. Patient is still nauseous did move her bowel for last few days. 05/26/2022 Patient abdomen is still distended and tympanic didn't move her bowel yet will order soapsuds enema. Constitutional: Denied any fatigue denied any fever. Cardio vascular: denied any chest pain, palpitations Gastrointestinal denied any nausea vomiting still has significant abdominal discomfort Pulmonary: Denied any shortness of breath cough Neurologic denied any new focal deficits All inpatient medications were reviewed and appropriate changes in these medications as dictated in the interval history and assessment and plan. PHYSICAL EXAMINATION: GENERAL: The patient is alert and oriented x3, not in any acute distress. Well developed, well nourished. HEENT: Pupils are round and equally reacting to light. EOMI. No scleral icterus. No conjunctival pallor. Normocephalic, atraumatic. No pharyngeal erythema. No thyromegaly. CARDIOVASCULAR: S1 and S2 present. No murmurs, rubs, or gallops. PULMONARY: Chest is clear to auscultation, no wheezing or crackles. ABDOMEN: Distended tympanic MUSCULOSKELETAL: No joint swelling or deformity. EXTREMITIES: No cyanosis, clubbing, or pedal edema. NEUROLOGICAL: Gross neurological examination did not reveal any focal deficits. SKIN: No rashes. Assessment and plan -Abdominal pain secondary to pancreatic cancer abdominal distention: There is ascites also noted paracentesis will be ordered patient is also constipated , no improvement with the lactulose, will order soapsuds enema. -Pancreatic cancer patient is presently hospice and admitted for inpatient hospice and acute symptom management Other notable medical problems are asthma, hyperlipidemia, hypertension DVT prophylaxis: Irrelevant at this time Objective - Vital Signs Vital signs: Vital Signs Temp 97.7 F 05/26/22 13:17 Pulse 76 05/26/22 13:17 Resp 18 05/26/22 13:17 BP 130/76 05/26/22 13:17 Pulse Ox 97 05/26/22 13:17 FiO2 Intake & Output 05/25/22 05/26/22 05/26/22 18:59 06:59 18:59 Intake Total 200 Balance 200 Weight 48.081 kg 49 kg Intake: Oral 200 Other: # Voids 1 - Labs Labs: Abnormal Lab Results - Last 24 Hours (Table) 05/25/22 05/25/22 05/26/22 Range/Units 17:26 20:08 07:13 POC Glucose (mg/dL) 209 H 183 H 195 H (70-110) mg/dL 05/26/22 Range/Units 11:13 POC Glucose (mg/dL) 228 H (70-110) mg/dL
[2022-05-26 17:17] LABS: Glucose,Whole Blood 189 mg/dL (70-110)
--- NOTE | 2022-05-26 17:57 | XR ---
EXAMINATION TYPE: XR abdomen 1V DATE OF EXAM: 05/26/2022 COMPARISON: 06/18/2021 HISTORY: Pain TECHNIQUE: Single view FINDINGS: There is some mild gas-distended large bowel. I do not see evidence for mechanical bowel ob struction. No sign of free air. There is apparent biliary stent in the right upper quadrant. No evide nce of a mass. IMPRESSION: Nonacute abdomen.
[2022-05-26 21:24] LABS: Glucose,Whole Blood 212 mg/dL (70-110)
[2022-05-26] MEDS: MONTELUKAST 10 MG TAB PO SCH (22:36)
[2022-05-27] MEDS: MORPHINE SULFATE 4 MG/ML SYRINGE IVP PRN ×4 (02:01→19:22)
[2022-05-27] MEDS: ALPRAZolam 0.25 MG TAB PO PRN (02:06)
[2022-05-27 07:18] LABS: Glucose,Whole Blood 197 mg/dL (70-110)
[2022-05-27] MEDS: METOCLOPRAMIDE 5 MG/ML 2 ML VIAL IVP PRN ×2 (07:35→18:30)
[2022-05-27] MEDS: dexAMETHasone 4 MG TAB PO SCH ×2 (08:35→21:14)
[2022-05-27] MEDS: INSULIN ASPART (NovoLOG) 100 UNIT/ML VIAL SQ SCH ×5 (08:35→21:14)
[2022-05-27] MEDS: GABAPENTIN 300 MG CAP PO SCH ×3 (08:35→21:14)
[2022-05-27] MEDS: DOCUSATE 100 MG CAP PO SCH ×2 (08:35→21:14)
[2022-05-27 09:11] LABS: Mean Platelet Volume 7.6; Platelet Count 252 k/uL (150-450)
[2022-05-27 09:19] LABS: INR 1.3 (<1.2); Prothrombin Time 13.2 sec (9.0-12.0)
[2022-05-27 11:17] LABS: Glucose,Whole Blood 212 mg/dL (70-110)
[2022-05-27] MEDS ORDERED: ALPRAZolam 0.25 MG TAB PO PRN (12:26)
--- NOTE | 2022-05-27 16:21 | US ---
Ultrasound-guided paracentesis. DATE OF EXAM: 05/27/2022 CLINICAL HISTORY: Ascites The procedure was discussed with the patient. The risks, complications, benefits, and alternatives we re discussed and any questions were answered. Informed consent was obtained. The patient was placed s upine on the ultrasound table and prepped and draped in the usual sterile fashion. All elements of maximal barrier technique were utilized. Under ultrasound guidance, access into the right lower quadrant was obtained, via the paracentesis catheter system and direct ultrasound guidanc e. Approximately 4 liters of straw-colored fluid was removed. The patient was stable throughout the proc edure and remained stable upon discharge from Department of Radiology. IMPRESSION: Successful paracentesis under ultrasound guidance.
[2022-05-27] MEDS: ONDANSETRON 4 MG/2 ML VIAL IVP PRN (16:40)
[2022-05-27 17:22] LABS: Glucose,Whole Blood 224 mg/dL (70-110)
[2022-05-27 20:28] LABS: Glucose,Whole Blood 180 mg/dL (70-110)
[2022-05-27] MEDS: MONTELUKAST 10 MG TAB PO SCH (21:14)
[2022-05-28] MEDS: MORPHINE SULFATE 4 MG/ML SYRINGE IVP PRN ×2 (01:25→05:48)
[2022-05-28] MEDS: METOCLOPRAMIDE 5 MG/ML 2 ML VIAL IVP PRN ×2 (01:27→09:42)
[2022-05-28] MEDS: ONDANSETRON 4 MG/2 ML VIAL IVP PRN (05:48)
[2022-05-28 07:13] LABS: Glucose,Whole Blood 182 mg/dL (70-110)
[2022-05-28 08:11] VITALS: BP 160/87; PULSE 72; RESP 16; TEMP 98
--- NOTE | 2022-05-28 08:30 | P.PN ---
Subjective Progress Note Date: 05/27/22 Patient with pancreatic cancer is admitted for symptom management. Patient was having nausea uncontrolled abdominal pain and abdominal ascites. Patient is still nauseous did move her bowel for last few days. 05/26/2022 Patient abdomen is still distended and tympanic didn't move her bowel yet will order soapsuds enema. 05/27/2022 Patient is evaluated today resting in bed at the bedside. She is pending paracentesis with interventional radiology and planning for discharge home later today. Reports no pain today. Having some increased anxiety and xanax was increased. Continues on oral decadron. [facility] is following patient. She had abdominal xray completed which is showing nonacute abdomen with mild gas distended large bowel. She was given medication and did have a bowel movement. Blood glucose in the 180s. Patient is afebrile, heart rate 68, blood pressure 158/85. 98% on room air. Review of Systems Constitutional: Denied any fatigue denied any fever. Cardio vascular: denied any chest pain, palpitations Gastrointestinal denied any nausea vomiting had a BM. Pulmonary: Denied any shortness of breath cough Neurologic denied any new focal deficits All inpatient medications were reviewed and appropriate changes in these medications as dictated in the interval history and assessment and plan. PHYSICAL EXAMINATION: GENERAL: The patient is alert and oriented x3, not in any acute distress. Well developed, well nourished. HEENT: Pupils are round and equally reacting to light. EOMI. No scleral icterus. No conjunctival pallor. Normocephalic, atraumatic. No pharyngeal erythema. No thyromegaly. CARDIOVASCULAR: S1 and S2 present. No murmurs, rubs, or gallops. PULMONARY: Chest is clear to auscultation, no wheezing or crackles. ABDOMEN: Distended, less tympanic normoactive bowels MUSCULOSKELETAL: No joint swelling or deformity. EXTREMITIES: No cyanosis, clubbing, or pedal edema. NEUROLOGICAL: Gross neurological examination did not reveal any focal deficits. SKIN: No rashes. Assessment and plan -Abdominal pain secondary to pancreatic cancer abdominal distention: There is ascites also noted paracentesis will be ordered patient is also constipated which did improved after enema and lactulose. -Pancreatic cancer patient is presently hospice and admitted for inpatient hospice and acute symptom management Other notable medical problems are asthma, hyperlipidemia, hypertension DVT prophylaxis: Irrelevant at this time No Code Plan paracentesis this afternoon and discharge home afterwards. The impression and plan of care has been dictated by Aletha Campos, Nurse Practitioner as directed. Dr. Chely MD I have performed a history and physical examination and medical decision making of this patient, discussed the same with the dictator, and agree with the dictators assessment and plan as written, documented as a scribe. Based on total visit time, I have performed more than 50% of this visit. Objective - Vital Signs Vital signs: Vital Signs Temp 98.7 F 05/27/22 07:19 Pulse 74 05/27/22 07:19 Resp 16 05/27/22 07:19 BP 162/88 05/27/22 07:19 Pulse Ox 98 05/27/22 07:19 FiO2 Intake & Output 05/26/22 05/27/22 05/27/22 18:59 06:59 18:59 Intake Total 375 Balance 375 Weight 48.5 kg Intake: Oral 375 Other: # Voids 2 2 - Labs CBC & Chem 7: 05/27/22 08:42 Labs: Abnormal Lab Results - Last 24 Hours (Table) 05/26/22 05/26/22 05/26/22 Range/Units 11:13 17:15 21:21 PT (9.0-12.0) sec INR (<1.2) POC Glucose (mg/dL) 228 H 189 H 212 H (70-110) mg/dL 05/27/22 05/27/22 Range/Units 07:16 08:42 PT 13.2 H (9.0-12.0) sec INR 1.3 H (<1.2) POC Glucose (mg/dL) 197 H (70-110) mg/dL Assessment and Plan Time with Patient: Less than 30
[2022-05-28] MEDS: DOCUSATE 100 MG CAP PO SCH (08:43)
[2022-05-28] MEDS: INSULIN ASPART (NovoLOG) 100 UNIT/ML VIAL SQ SCH (08:43)
[2022-05-28] MEDS: dexAMETHasone 4 MG TAB PO SCH (08:43)
[2022-05-28] MEDS: GABAPENTIN 300 MG CAP PO SCH (08:43)
[2022-05-28] MEDS: LACTULOSE 20 GM/30 ML CUP PO PRN (10:15)
[2022-05-28 11:11] VITALS: BMI 17.2
--- NOTE | 2022-05-29 17:13 | P.DS ---
Providers Date of admission: 05/24/22 17:21 Attending physician: Kenney Vazquez Primary care physician: [facility] Course: Final Diagnosis Abdominal pain secondary to pancreatic cancer with ascites noted and patient underwent paracentesis with 3L of fluid removed Constipation improved Pancreatic cancer patient is presently hospice and will dc home with same hospice services. History asthma History hyperlipidemia History hypertension No Code Discharge Disposition Patient is stable for discharge home to continue with hospice services. She is status post paracentesis with 3 liters of fluid removed. She was discharged on bowel regimen and recommended to continue lactulose twice a day as needed. Case was discussed with hospice nurse and she will be monitored closely for increased abdominal distention and need for repeat paracentesis. Discharged home with same pain regimen. Hospital Course Patient with pancreatic cancer is admitted for symptom management. Patient was having nausea uncontrolled abdominal pain and abdominal ascites. Patient is still nauseous and reports she has not moved her bowels in a few days and is maintained on narcotics for pain management. She was treated with enema and lactulose and was able to move her bowels. She underwent paracentesis with 3 L of fluid removed. Post procedure she had some nausea and was monitored overnight and did receive an additional dose of lactulose prior to discharge. Vitals have remained stable and she will be discharged home and will continue be followed by Hospice Services. 05/28/2022 Patient is evaluated today on medical floor having underwent paracentesis yesterday. She was monitored overnight at patient request she did not feel well and was nausea. Noted that this was her first paracentesis ever performed therapeutically. She felt better in the morning but was noted to have tympany on percussion over the epigastric area with dullness to the LLQ and she did receive an additional dose of lactulose prior to discharge and she is instructed to continue on bowel regimen to avoid constipation while continuing on narcotic for pain managment. Currently states pain is controlled. Denies shortness of breath, no chest pain. Tolerating diet. Blood pressure remains stable at 160/87, heart rate of 72, afebrile, and 97% on room air. Will be discharged home. Please see medication reconciliation for a list of current medication. Thank you for allowing us to participate in the care of this patient. The impression and plan of care has been dictated by Aletha Campos, Nurse Practitioner as directed. Dr. Chely MD I have performed a history and physical examination and medical decision making of this patient, discussed the same with the dictator, and agree with the dictators assessment and plan as written, documented as a scribe. Based on total visit time, I have performed more than 50% of this visit. Patient Condition at Discharge: Stable Plan - Discharge Summary Discharge Rx Participant: No New Discharge Prescriptions: New Docusate [Colace] 100 mg PO BID #60 cap HYDROcodone/APAP 5-325MG [[place] 5-325] 1 each PO Q6HR PRN tab PRN Reason: Pain Lactulose 20 gm PO BID PRN #200 ml PRN Reason: Constipation dexAMETHasone ORAL [Hexadrol] 4 mg PO BID tab Continue Montelukast [Singulair] 10 mg PO HS ALPRAZolam [Xanax] 0.25 mg PO QID PRN PRN Reason: Anxiety Fluticasone Propion/Salmeterol [Advair 250-50 Diskus] 1 puff INHALATION RT- DAILY Lidocaine-Prilocaine Cream [Emla Cream 2.5%/2.5%] 1 applic TOPICAL DIRECTED PRN PRN Reason: PORT ACCESS Sodium Bicarbonate Tab 650 mg PO TID #30 tab Nirmatrelvir/Ritonavir [Paxlovid 150-100 mg Pack (Eua)] 1 dose PO BID Ondansetron [Zofran] 4 mg PO Q4H PRN PRN Reason: Nausea OLANZapine 5 mg PO HS Losartan [Cozaar] 50 mg PO DAILY PRN PRN Reason: HIGH BP Tolterodine Tartrate 1 mg PO BID Bimatoprost [Bimatoprost 0.03% Oph Soln] 1 drop BOTH EYES HS Insulin Aspart (Niacinamide) [Fiasp 100 Unit/ml Flextouch Pen] 2 - 6 units SQ AC-TID PRN PRN Reason: HIGH BLOOD SUGAR amLODIPine [Norvasc] 10 mg PO DAILY PRN PRN Reason: HIGH BP Potassium Chloride ER [K-Dur 20] 20 meq PO DAILY Gabapentin 300 mg PO TID Insulin Degludec [Tresiba Flextouch U-100 Pen] 12 units SQ BID PRN PRN Reason: HIGH BLOOD SUGAR Discharge Medication List ALPRAZolam [Xanax] 0.25 mg PO QID PRN 07/11/14 [History] Montelukast [Singulair] 10 mg PO HS 07/11/14 [History] Fluticasone Propion/Salmeterol [Advair 250-50 Diskus] 1 puff INHALATION RT-DAILY 09/22/15 [History] amLODIPine [Norvasc] 10 mg PO DAILY PRN 05/01/21 [History] Lidocaine-Prilocaine Cream [Emla Cream 2.5%/2.5%] 1 applic TOPICAL DIRECTED PRN 06/17/21 [History] Sodium Bicarbonate Tab 650 mg PO TID #30 tab 06/19/21 [Rx] Bimatoprost [Bimatoprost 0.03% Ophth Soln] 1 drop BOTH EYES HS 04/19/22 [Histo ry] Gabapentin 300 mg PO TID 04/19/22 [History] Insulin Aspart (Niacinamide) [Fiasp 100 Unit/ml Flextouch Pen] 2 - 6 units SQ AC-TID PRN 04/19/22 [History] Insulin Degludec [Tresiba Flextouch U-100 Pen] 12 units SQ BID PRN 04/19/22 [History] Losartan [Cozaar] 50 mg PO DAILY PRN 04/19/22 [History] Nirmatrelvir/Ritonavir [Paxlovid 150-100 mg Pack (Eua)] 1 dose PO BID 04/19/22 [History] OLANZapine 5 mg PO HS 04/19/22 [History] Ondansetron [Zofran] 4 mg PO Q4H PRN 04/19/22 [History] Potassium Chloride ER [K-Dur 20] 20 meq PO DAILY 04/19/22 [History] Tolterodine Tartrate 1 mg PO BID 04/19/22 [History] Docusate [Colace] 100 mg PO BID #60 cap 05/27/22 [Rx] HYDROcodone/APAP 5-325MG [[place] 5-325] 1 each PO Q6HR PRN tab 05/27/22 [Rx] dexAMETHasone ORAL [Hexadrol] 4 mg PO BID tab 05/27/22 [Rx] Lactulose 20 gm PO BID PRN #200 ml 05/28/22 [Rx] Follow up Appointment(s)/Referral(s): London Savage DO [Primary Care Provider] - [facility] [NON-STAFF] - Patient Instructions/Handouts: Laxative, Stool Softeners (By mouth), Lactulose (By mouth), Acute Abdominal Pain (DC), Ascites (DC), Paracentesis (DC) Activity/Diet/Wound Care/Special Instructions: Continues all same home medications and follow up with your providers as usual Discharge Disposition: HOME WITH HOSPICE
== END 2022-05-28 12:01 | disposition still patient (30) | DRG 948 ==
LOC: 5NMEDONC 17:21
PROVIDERS: ADMIT Hospitalist; ATTEND Hospitalist
PROC: 0W9G30Z Drainage of Peritoneal Cavity with Drainage Device, Percutaneous Approach (ICD-10-PCS; principal; 2022-05-27)
DX: R18.8 Other ascites (principal); C25.9 Malignant neoplasm of pancreas, unspecified; F12.90 Cannabis use, unspecified, uncomplicated; R11.0 Nausea; E78.5 Hyperlipidemia, unspecified; F41.9 Anxiety disorder, unspecified; I10 Essential (primary) hypertension; J45.909 Unspecified asthma, uncomplicated; K59.00 Constipation, unspecified; Z79.899 Other long term (current) drug therapy; Z87.891 Personal history of nicotine dependence
CPT/HCPCS: 49083; 74018; 76705; 85049; 85610